=== PATIENT | male | born 1945 | race Two or more races ===

== ENCOUNTER 2016-10-13 16:33 | Emergency (ER) | payer OTHER, MEDICAID ==
[~2016-10-13] VITALS: Ht 167.6 cm; Wt 95.3 kg
[~2016-10-13 16:33] MED LIST: ASPI-247; CEPH750C6 OR; EZET10TA2 PO; FENO43CA3 OR; HYDR-1421 PO; HYDR500T13 PO; METF-489 PO; PRAVASTATIN PO
[2016-10-13 17:43] VITALS: BP 127/85
[2016-10-13 18:11] LABS: Basophils # (auto) 0.1 uL; Basophils % (auto) 0.7 % (0.0-2.0); CONDITION Y; Eosinophils # (auto) 0.2 uL; Eosinophils % (auto) 2.4 % (0.0-7.0); Hematocrit 46.6 % (41.0-53.0); Hemoglobin 15.3 g/dL (13.5-17.5); Lymphocytes # (auto) 1.9 uL; Lymphocytes % (auto) 23.7 % (10.0-50.0); Mean Corpuscular Hemoglobin 28.1 pg (28.0-32.0); Mean Corpuscular Hgb Conc. 32.9 g/dL (32.0-36.0); Mean Corpuscular Volume 85.6 fL (80.0-100.0); Mean Platelet Volume 9.3 fL (7.4-10.4); Monocytes % (auto) 12.1 % (0.0-12.0); Neutrophils # (auto) 4.9 uL; Neutrophils % (auto) 61.1 % (37.0-80.0); Platelet Count (auto) 232 10^3/uL (140-450); Red Cell Distribution Width 13.6 % (11.6-16.0); White Blood Cell 8.1 10^3/uL (4.4-10.8)
[2016-10-13 18:15] LABS: BUN/Creatinine Ratio 29.8; Potassium 3.7 mmol/L (3.5-5.1)
[2016-10-13 18:16] LABS: Albumin 3.7 g/dL (3.4-5.0); Bilirubin, Total 0.3 mg/dL (0.2-1.0); Calcium 8.9 mg/dL (8.5-10.1); Total Protein 7.2 g/dL (6.4-8.2)
== END 2016-10-13 18:34 | disposition home or self-care (01) ==
LOC: ER 16:51
DX: R51 Headache (principal); E11.9 Type 2 diabetes mellitus without complications; G89.29 Other chronic pain; M54.9 Dorsalgia, unspecified; I10 Essential (primary) hypertension; E78.5 Hyperlipidemia, unspecified; Z86.73 Personal history of transient ischemic attack (TIA), and cerebral infarction without residual deficits; R42 Dizziness and giddiness
CPT/HCPCS: 36415; 70450; 80053; 85025; 93005

== ENCOUNTER 2024-03-07 12:57 | Inpatient (IN) | payer OTHER, MEDICAID ==
[~2024-03-07] VITALS: Ht 172.7 cm; Wt 87.6 kg
[~2024-03-07 12:57] MED LIST changes: -EZET10TA2 PO; +EZET10TA22 PO; +FENO1CAP3 OR; -FENO43CA3 OR
[2024-03-07 15:23] LABS: Basophils # (auto) 0.1 10 ^3/uL (0-0.2); Basophils % (auto) 0.8 % (0.0-2.0); Eosinophils # (auto) 0.2 10 ^3/uL (0-0.8); Eosinophils % (auto) 2.7 % (0.0-7.0); Hemoglobin 15.4 g/dL (13.5-17.5); Lymphocytes # (auto) 1.7 10 ^3/uL (0.4-5.4); Lymphocytes % (auto) 19.7 % (10.0-50.0); Mean Corpuscular Hemoglobin 28.7 pg (28.0-32.0); Mean Corpuscular Hgb Conc. 33.4 g/dL (32.0-36.0); Mean Corpuscular Volume 85.9 fL (80.0-100.0); Monocytes % (auto) 11.4 % (0.0-12.0); Neutrophils # (auto) 5.5 10 ^3/uL (1.6-8.6); Neutrophils % (auto) 65.4 % (37.0-80.0); Nucleated Red Blood Cells % 0.2 %; Platelet Count (auto) 235 10^3/uL (140-450); Red Blood Cells 5.36 10^6/uL (4.5-5.90); Red Cell Distribution Width 12.9 % (11.8-14.3); White Blood Cell 8.5 10^3/uL (4.4-10.8)
[2024-03-07] MEDS: SODIUM CHLORIDE 0.9% 1,000 ML IVB ONE (15:39)
[2024-03-07 15:43] LABS: Alanine Aminotransferase 28 U/L (7-40); Albumin 4.2 g/dL (3.2-4.8); Alkaline Phosphatase 108 U/L (46-116); Anion Gap 8 (5-15); Aspartate Aminotransferase 21 U/L (13-40); BUN/Creatinine Ratio 24.7 (10.0-20.0); Bilirubin, Total 0.5 mg/dL (0.2-1.0); Blood Alcohol 5.5 mg/dL (<10); Blood Urea Nitrogen 19 mg/dL (9-23); Calcium 9.9 mg/dL (8.7-10.4); Carbon Dioxide 25 mmol/L (20-31); Glucose 90 mg/dL (74-106); Potassium 4.2 mmol/L (3.5-5.1); Sodium 141 mmol/L (136-145); Total Protein 6.7 g/dL (5.7-8.2)
[2024-03-07 15:44] LABS: Chloride 108 mmol/L (98-107)
--- NOTE | 2024-03-07 15:46 | DVH ---
XY CHEST PORTABLE, HISTORY: cp COMPARISON: None None TECHNICAL DATA: 1 view of the chest was obtained. FINDINGS: Lines and tubes: None Cardiomediastinal silhouette: normal Pulmonary vasculature: normal Lung expansion: normal Lung airspace: Left basilar airspace opacity. Lung interstitium: normal Pleura: normal Pneumothorax: no Bones: Unremarkable Other: no IMPRESSION: Left basilar airspace opacity could be atelectasis.
--- NOTE | 2024-03-07 15:49 | DVH ---
EXAM: CT HEAD WITHOUT CONTRAST HISTORY: ams COMPARISON: None TECHNIQUE: Axial images of the head were obtained and reformatted in coronal and sagittal planes. All CT scans at this medical facility are performed using dose modulation techniques as appropriate t o a performed exam including the following: Automated exposure control was utilized; adjustment of th e MA and/or KV according to patient size; and use of iterative reconstruction technique. CT Dose: CTDI volume is 53 mGy. Dose-length product is 853 mGy*cm FINDINGS: There is no evidence of acute intracranial hemorrhage, mass, mass effect midline shift. There is no h ydrocephalus or extra-axial fluid collection. There is a nonspecific punctate dystrophic calcificatio n in the superior left frontal lobe. Louise-white matter differentiation is maintained. The visualized paranasal sinuses and mastoid air cells are clear. The calvarium is intact. IMPRESSION: 1. No acute intracranial process. HS:Y
[2024-03-07] MEDS: SODIUM CHLORIDE 0.9% 1,000 ML IV ONE (16:18)
--- NOTE | 2024-03-07 16:57 | ED.PDOC ---
History of Present Illness HPI Comments 78-year-old male, with a history of CAD, DM, HLD, HTN, TIA, and prostate cancer, presents with son with complaint of headache, dizziness, and blurry vision for 1 week, today. Patient is a [place] speaker that required english tutor. Per son, patient is reported to have had symptoms unprovoked and intermittently for the past week with associated difficulty ambulating and maintaining his balance. Patient symptoms are commented to worsen also with prolong ambulation. He has no additional relevant a pertinent history reported at time of assessment, such as recent injuries, sick contact, travel, changes to medications, or substance use/exposure. Patient has no reported speech changes, facial droop, lightheadedness, fever, chills, or other associated symptoms or modifiers at this time. Chief Complaint: Dizziness Time Seen by MD: 14:50 Primary Care Provider: unknown Reviewed Notes: Nurses Notes, Medications, Allergies Allergies: Coded Allergies: NO KNOWN ALLERGIES (Unverified , 09/21/09) Home Meds Reported Medications Hydrocodone-Acetaminophen (Acetaminophen/Hydrocodone) 1 Tab Tab, 1 TAB PO, TAB 04/06/13 Fenofibrate (FENOFIBRATE) 43 Mg Cap, 20 MG OR DAILY, CAP 04/06/13 Ezetimibe (Zetia) 10 Mg Tab, 40 MG PO DAILY, TAB 04/06/13 Cephalexin (CEPHALEXIN) 750 Mg Cap, 500 MG OR, CAP 04/06/13 Metformin Hydrochloride (METFORMIN HCL ER) 500 Mg Tab, 500 MG PO DAILY, TAB 04/06/13 Aspirin (Asa) 325 Mg Tb 10/21/09 [Pravastatin] No Conflict Check, 20 MG PO 10/21/09 Hydrocodone-Acetaminophen (Vicodin) 1 Tab Tab, 1 TAB PO PRN 09/21/09 Information Source: Patient Mode of Arrival: Ambulatory Severity: Moderate Timing: Weeks Duration: Since onset Prehospital treatment: None Past Medical History PAST MEDICAL HISTORY: CAD, Cancer (Prostate), DM, High Lipids, HTN, TIA Surgical History: Denies all surgeries Family History Family History: Unobtainable Social History Smoker: Non-Smoker Alcohol: Denies ETOH Use Drugs: Denies Drug Use Lives In: Home EENTM: reports: blurred vision Neurological: reports: dizziness, headache All Other Systems: Reviewed and Negative (Negative unless otherwise stated above or in HPI) Physical Exam General Appearance: No Apparent Distress, Normal HEENT: Normal ENT Inspection, Pharynx Normal, TMs Normal Neck: Full Range of Motion, Non-Tender, Normal, Normal Inspection Respiratory: Chest Non-Tender, Lungs Clear, No Accessory Muscle Use, No Respiratory Distress, Normal Breath Sounds Cardiovascular: No Edema, No JVD, No Murmur, No Gallop, Normal Peripheral Pulses, Regular Rate/Rhythm Breast Exam: Deferred Gastrointestinal: No Organomegaly, Non Tender, No Pulsatile Mass, Normal Bowel Sounds, Soft Genitalia: Deferred Pelvic: Deferred Rectal: Deferred Extremities: No calf tenderness, Normal capillary refill, Normal inspection, Normal range of motion, Non-tender, No pedal edema Musculoskeletal : Apperance: Normal Neurologic: Alert, editorial clerk II-XII nml as Tested, No Motor Deficits, Normal Affect, Normal Mood, No Sensory Deficits Cerebellar Function: Normal Reflexes: Normal Skin: Dry, Normal Color, Warm Lymphatic: No Adenopathy Was a procedure done? Was a procedure done?: No Differential Dx Considerations may include: Vertigo, dehydration, electrolyte imbalance, migraines, tension headache, viral syndrome X-Ray, Labs, Meds, VS Vital Signs Date Time Temp Pulse Resp B/P (MAP) Pulse Ox O2 Delivery O2 Flow Rate FiO2 03/07/24 15:40 69 16 137/75 (95) 95 03/07/24 13:23 96.5 86 16 137/65 (89) 98 Lab Test 03/07/24 16:35 03/07/24 15:00 03/07/24 13:14 Range/Units Troponin I High Sensitivity 9 10 </=54 ng/L White Blood Count 8.5 4.4-10.8 10^3/uL Red Blood Count 5.36 4.5-5.90 10^6/uL Hemoglobin 15.4 13.5-17.5 g/dL Hematocrit 46.0 41.0-53.0 % Mean Corpuscular Volume 85.9 80.0-100.0 fL Mean Corpuscular Hemoglobin 28.7 28.0-32.0 pg Mean Corpuscular Hemoglobin Concent 33.4 32.0-36.0 g/dL Red Cell Distribution Width 12.9 11.8-14.3 % Platelet Count 235 140-450 10^3/uL Mean Platelet Volume 8.7 6.9-10.8 fL Neutrophils (%) (Auto) 65.4 37.0-80.0 % Lymphocytes (%) (Auto) 19.7 10.0-50.0 % Monocytes (%) (Auto) 11.4 0.0-12.0 % Eosinophils (%) (Auto) 2.7 0.0-7.0 % Basophils (%) (Auto) 0.8 0.0-2.0 % Neutrophils # (Auto) 5.5 1.6-8.6 10 ^3/uL Lymphocytes # (Auto) 1.7 0.4-5.4 10 ^3/uL Monocytes # (Auto) 1.0 0-1.3 10 ^3/uL Eosinophils # (Auto) 0.2 0-0.8 10 ^3/uL Basophils # (Auto) 0.1 0-0.2 10 ^3/uL Nucleated Red Blood Cells 0.2 % Sodium Level 141 136-145 mmol/L Potassium Level 4.2 3.5-5.1 mmol/L Chloride Level 108 H 98-107 mmol/L Carbon Dioxide Level 25 20-31 mmol/L Anion Gap 8 5-15 Blood Urea Nitrogen 19 9-23 mg/dL Creatinine 0.77 0.700-1.30 mg/dL Glomerular Filtration Rate Calc 92 >90 mL/min BUN/Creatinine Ratio 24.7 H 10.0-20.0 Serum Glucose 90 74-106 mg/dL Calcium Level 9.9 8.7-10.4 mg/dL Total Bilirubin 0.5 0.2-1.0 mg/dL Aspartate Amino Transferase (AST) 21 13-40 U/L Alanine Aminotransferase (ALT) 28 7-40 U/L Alkaline Phosphatase 108 46-116 U/L Total Protein 6.7 5.7-8.2 g/dL Albumin 4.2 3.2-4.8 g/dL Plasma/Serum Blood Alcohol 5.5 <10 mg/dL POC Glucose 108 H 70-106 mg/dl Current Medications Medications (Trade) Dose Ordered Sig/Antonia Route Start Time Stop Time Status Last Admin Sodium Chloride 1,000 ml @ 1,000 mls/hr Q1H ONCE IVB 03/07/24 14:45 03/07/24 15:44 DC 03/07/24 15:39 [facility] [id number] [place] [id number] Ph: [phone] DIAGNOSTIC IMAGING Diagnostic Imaging Report : [id number] Signed PATIENT: SAHRA BALDWIN ACCT: [id number] UNIT: [id number] : 1945 LOC: ER ROOM / BED: / AGE / SEX: 78 / M ADM STATUS: REG ER SERVICE 41 ORDERING PHYSICIAN: BILLY EASTON MD PROCEDURE(s): HWOCT - HEAD WITHOUT CONTRAST REASON: ams ORDER NUMBER(s): [id number], ACCESSION NUMBER(s): [id number] EXAM: CT HEAD WITHOUT CONTRAST HISTORY: ams COMPARISON: None TECHNIQUE: Axial images of the head were obtained and reformatted in coronal and sagittal planes. All CT scans at this medical facility are performed using dose modulation techniques as appropriate to a performed exam including the following: Automated exposure control was utilized; adjustment of the MA and/or KV according to patient size; and use of iterative reconstruction technique. CT Dose: CTDI volume is 53 mGy. Dose-length product is 853 mGy*cm FINDINGS: There is no evidence of acute intracranial hemorrhage, mass, mass effect midline shift. There is no hydrocephalus or extra-axial fluid collection. There is a nonspecific punctate dystrophic calcification in the superior left frontal lobe. Louise-white matter differentiation is maintained. The visualized paranasal sinuses and mastoid air cells are clear. The calvarium is intact. IMPRESSION: 1. No acute intracranial process. HS:Y ATED BY: JOSE F GRAF MD DICTATED DATE/TIME: 03/07/241547 SIGNED BY: JOSE F GRAF MD SIGNED DATE/TIME: 03/07/241547 CC: [address] [address] Ph: [phone] DIAGNOSTIC IMAGING Diagnostic Imaging Report : [id number] Signed PATIENT: SAHRA BALDWIN ACCT: [id number] UNIT: [id number] : 1945 LOC: ER ROOM / BED: / AGE / SEX: 78 / M ADM STATUS: REG ER SERVICE ORDERING PHYSICIAN: BILLY EASTON MD PROCEDURE(s): CXRP - CHEST PORTABLE REASON: cp ORDER NUMBER(s): [id number], ACCESSION NUMBER(s): [id number] XY CHEST PORTABLE, HISTORY: cp COMPARISON: None None TECHNICAL DATA: 1 view of the chest was obtained. FINDINGS: Lines and tubes: None Cardiomediastinal silhouette: normal Pulmonary vasculature: normal Lung expansion: normal Lung airspace: Left basilar airspace opacity. Lung interstitium: normal Pleura: normal Pneumothorax: no Bones: Unremarkable Other: no IMPRESSION: Left basilar airspace opacity could be atelectasis. ATED BY: WOLF GARCIA MD DICTATED DATE/TIME: 03/07/241543 SIGNED BY: WOLF GARCIA MD SIGNED DATE/TIME: 03/07/241543 CC: Time of 1ST Reevaluation: 15:20 Reevaluation 1ST: Unchanged Patient Education/Counseling: Diagnosis, Treatment Family Education/Counseling: Diagnosis, Treatment Departure 1 Departure Time of Disposition: 17:41 Impression: Primary Impression: Dizziness Disposition: 09 ADMITTED INPATIENT Admit to: Tele Condition: Guarded Critical Care Note Critical Care Time?: Yes (45 min-critical care time only) Stability Stability form required: No Heart Score Heart Score: Heart Score Response (Comments) Value History N/A 0 EKG N/A 0 Age N/A 0 Risk Factors N/A 0 Troponin N/A 0 Total 0 I personally scribed for BILLY EASTON MD ([email or web address]) on 03/07/24 at 16:57. Electronically submitted by Clinton Kolb ([email or web address]). BILLY EASTON MD Mar 07, 2024 16:57
[2024-03-07] MEDS ORDERED: ACETAMINOPHEN 325 MG TAB PO PRN (21:15)
[2024-03-07] MEDS ORDERED: DEXTROSE (50%) 50ML SYRG IV PRN (21:15)
[2024-03-07] MEDS ORDERED: ONDANSETRON HCL 4 MG/2 ML VIAL IV PRN (21:15)
[2024-03-07] MEDS: MECLIZINE HCL 25 MG TAB PO ONE (21:50)
--- NOTE | 2024-03-07 22:14 | DVHHP2 ---
History of Present Illness Reason for Visit: Dizziness History of Present Illness 78-year-old male presents for evaluation of dizziness. Patient reports a one- week history dizziness with associated occipital headache. He reports dizziness being worse with standing. Stasis symptoms are constant. Denies blurred vision or unilateral weakness. Denies cardiac or respiratory complaints. Past Medical History Diabetes mellitus, dyslipidemia, hypertension, prostate cancer and CAD Past Surgical History Denies Family History Noncontributory Smoke: No ALCOHOL: none Drugs: None Lives: with Family Review of Systems Review of Systems Review of systems are currently negative otherwise addressed in HPI. Allergies: Coded Allergies: NO KNOWN ALLERGIES (Unverified , 09/21/09) Medications Current Medications Medications Dose Ordered Sig/Antonia Route Start Time Stop Time Status Last Admin Dose Admin Meclizine HCl 25 mg Q6HPRN PRN PO 03/08/24 03:00 Atorvastatin Calcium 40 mg HS PO 03/07/24 22:00 Losartan Potassium 50 mg DAILY PO 03/08/24 10:00 Levothyroxine Sodium 25 mcg QAM@0600 PO 03/08/24 06:00 Diagnostic Test (Pha) 1 strip ACHS 03/07/24 22:00 Insulin Human Regular ACHS SC 03/07/24 22:00 Dextrose 50 ml UD PRN IV 03/07/24 21:15 Ondansetron HCl 4 mg Q4HP PRN IV 03/07/24 21:15 Enoxaparin Sodium 40 mg DAILY SC 03/08/24 10:00 Acetaminophen 650 mg Q6HP PRN PO 03/07/24 21:15 Exam Vital Signs Vital Signs Date Time Temp Pulse Resp B/P (MAP) Pulse Ox O2 Delivery O2 Flow Rate FiO2 03/07/24 15:40 69 16 137/75 (95) 95 03/07/24 13:23 96.5 Exam Gen: 78-year-old male in mild distress Skin: Warm, dry, normal color and texture, no rash. HEENT: Normocephalic atraumatic, mucous membranes moist and pink. Neck: Cervical and supraclavicular nodes normal without enlargement, trachea is midline, thyroid gland is normal without masses. Pulmonary: Clear to auscultation and percussion bilaterally. Cardiac: Regular rate and rhythm. No murmur Abdomen: Soft, nontender, nondistended, bowel sounds present all 4 quadrants, no guarding, no rigidity, no organomegaly. Extremities: No cyanosis, clubbing, no edema Neuro: Cranial nerves II through XII grossly intact, normal affect and speech, no focal motor deficits. Labs/Xrays ORDERING PHYSICIAN: BILLY EASTON MD PROCEDURE(s): CXRP - CHEST PORTABLE REASON: cp ORDER NUMBER(s): [id number], ACCESSION NUMBER(s): [id number] XY CHEST PORTABLE, HISTORY: cp COMPARISON: None None TECHNICAL DATA: 1 view of the chest was obtained. FINDINGS: Lines and tubes: None Cardiomediastinal silhouette: normal Pulmonary vasculature: normal Lung expansion: normal Lung airspace: Left basilar airspace opacity. Lung interstitium: normal Pleura: normal Pneumothorax: no Bones: Unremarkable Other: no IMPRESSION: Left basilar airspace opacity could be atelectasis. RING PHYSICIAN: BILLY EASTON MD PROCEDURE(s): HWOCT - HEAD WITHOUT CONTRAST REASON: ams ORDER NUMBER(s): [id number], ACCESSION NUMBER(s): [id number] EXAM: CT HEAD WITHOUT CONTRAST HISTORY: ams COMPARISON: None TECHNIQUE: Axial images of the head were obtained and reformatted in coronal and sagittal planes. All CT scans at this medical facility are performed using dose modulation techniques as appropriate to a performed exam including the following: Automated exposure control was utilized; adjustment of the MA and/or KV according to patient size; and use of iterative reconstruction technique. CT Dose: CTDI volume is 53 mGy. Dose-length product is 853 mGy*cm FINDINGS: There is no evidence of acute intracranial hemorrhage, mass, mass effect midline shift. There is no hydrocephalus or extra-axial fluid collection. There is a nonspecific punctate dystrophic calcification in the superior left frontal lobe. Louise-white matter differentiation is maintained. The visualized paranasal sinuses and mastoid air cells are clear. The calvarium is intact. IMPRESSION: 1. No acute intracranial process. HS:Y Labs Test 03/07/24 21:53 03/07/24 18:16 03/07/24 15:00 Range/Units POC Glucose 213 H 70-106 mg/dl Troponin I High Sensitivity 11 </=54 ng/L Thyroid Stimulating Hormone (TSH) 2.66 0.55-4.78 uIU/mL White Blood Count 8.5 4.4-10.8 10^3/uL Red Blood Count 5.36 4.5-5.90 10^6/uL Hemoglobin 15.4 13.5-17.5 g/dL Hematocrit 46.0 41.0-53.0 % Mean Corpuscular Volume 85.9 80.0-100.0 fL Mean Corpuscular Hemoglobin 28.7 28.0-32.0 pg Mean Corpuscular Hemoglobin Concent 33.4 32.0-36.0 g/dL Red Cell Distribution Width 12.9 11.8-14.3 % Platelet Count 235 140-450 10^3/uL Mean Platelet Volume 8.7 6.9-10.8 fL Neutrophils (%) (Auto) 65.4 37.0-80.0 % Lymphocytes (%) (Auto) 19.7 10.0-50.0 % Monocytes (%) (Auto) 11.4 0.0-12.0 % Eosinophils (%) (Auto) 2.7 0.0-7.0 % Basophils (%) (Auto) 0.8 0.0-2.0 % Neutrophils # (Auto) 5.5 1.6-8.6 10 ^3/uL Lymphocytes # (Auto) 1.7 0.4-5.4 10 ^3/uL Monocytes # (Auto) 1.0 0-1.3 10 ^3/uL Eosinophils # (Auto) 0.2 0-0.8 10 ^3/uL Basophils # (Auto) 0.1 0-0.2 10 ^3/uL Nucleated Red Blood Cells 0.2 % Sodium Level 141 136-145 mmol/L Potassium Level 4.2 3.5-5.1 mmol/L Chloride Level 108 H 98-107 mmol/L Carbon Dioxide Level 25 20-31 mmol/L Anion Gap 8 5-15 Blood Urea Nitrogen 19 9-23 mg/dL Creatinine 0.77 0.700-1.30 mg/dL Glomerular Filtration Rate Calc 92 >90 mL/min BUN/Creatinine Ratio 24.7 H 10.0-20.0 Serum Glucose 90 74-106 mg/dL Calcium Level 9.9 8.7-10.4 mg/dL Total Bilirubin 0.5 0.2-1.0 mg/dL Aspartate Amino Transferase (AST) 21 13-40 U/L Alanine Aminotransferase (ALT) 28 7-40 U/L Alkaline Phosphatase 108 46-116 U/L Total Protein 6.7 5.7-8.2 g/dL Albumin 4.2 3.2-4.8 g/dL Plasma/Serum Blood Alcohol 5.5 <10 mg/dL Assessment/Plan Assessment/Plan Assessment Intractable headache Dizziness Hypertension Diabetes mellitus Plan Admit the patient to [facility] to the hospitalist MRI of the brain pending Meclizine trial Resume home medications Continue treatment per orders. Plan discussed with: Patient My Orders Orders - TATO SANDERS Procedure Category Date Status Time Atorvastatin (Lipitor) PHA 03/07/24 In Process 22:00 Losartan Tablet PHA 03/08/24 In Process (Cozaar Tablet) 10:00 Levothyroxine Tablet PHA 03/08/24 In Process (Synthroid Tablet) 06:00 Brain Head Wo Contrast MRI 03/07/24 Logged 21:05 Basic Metabolic Panel LAB 03/08/24 Verified 04:00 Glucose Blood PHA 03/07/24 In Process (Accu-Chek Comfort 22:00 Insulin R (Human) PHA 03/07/24 In Process (Insulin R) 22:00 Dextrose 50% Syringe PHA 03/07/24 In Process 21:15 Admit ADMIT 03/07/24 Transmitted 21:05 Ondansetron Hcl PHA 03/07/24 In Process (Zofran) 21:15 Enoxaparin Sodium PHA 03/08/24 In Process (Lovenox) 10:00 Cardiac DIET 03/08/24 Transmitted Diet-2gna,Lofat,Lochol Breakfast Condition: Stable GRAYSON 03/07/24 In Process 21:05 Acetaminophen Tablet PHA 03/07/24 In Process (Tylenol Tablet) 21:15 Bedrest With Bathroom GRAYSON 03/07/24 In Process Privileg 21:05 Meclizine Tablet PHA 03/08/24 In Process (Antivert Tablet) 03:00 Date of Service: Mar 07, 2024 Billing Provider: TATO SANDERS Common Visit Codes: [id number] INP/OBS CARE (MOD) TATO SANDERS Mar 07, 2024 22:14
[2024-03-07] MEDS: ATORVASTATIN 20 MG TAB PO SCH (22:17)
[2024-03-07] MEDS: InsuLIN REG 1unit/0.01ml Soln (100units/ml) SC SCH (22:17)
[2024-03-07] MEDS: ACCU-CHEK COMFORT CURVE STRIP VI SCH (22:17)
[2024-03-07 22:35] LABS: Urine Bacteria None Seen /hpf (None Seen)
[2024-03-07 22:49] LABS: Urine Blood Negative /uL (Negative); Urine Clarity Clear (Clear); Urine Color Light-Yellow (Yellow); Urine Protein, UAD TRACE (Negative); Urine Specific Gravity 1.025 (1.001-1.035); Urine Urobilinogen Normal (Negative); Urine WBC 1 /hpf (0 - 3); Urine pH 5.5 (5.0-9.0)
[2024-03-08] MEDS ORDERED: MECLIZINE HCL 25 MG TAB PO PRN (03:00)
[2024-03-08 04:40] LABS: Anion Gap 8 (5-15); Carbon Dioxide 26 mmol/L (20-31); Sodium 142 mmol/L (136-145)
[2024-03-08 04:42] LABS: Calcium 9.3 mg/dL (8.7-10.4)
[2024-03-08 04:46] LABS: BUN/Creatinine Ratio 20.8 (10.0-20.0); Blood Urea Nitrogen 16 mg/dL (9-23); Glucose 93 mg/dL (74-106)
[2024-03-08 04:48] LABS: Chloride 108 mmol/L (98-107)
[2024-03-08] MEDS: LEVOTHYROXINE SODIUM 25 MCG TAB PO SCH (05:38)
[2024-03-08 08:09] VITALS: BP 163/80; PULSE 68; RESP 18; TEMP 97.4; O2SAT 96
[2024-03-08] MEDS: LOSARTAN POTASSIUM 50 MG TAB PO SCH (08:10)
--- NOTE | 2024-03-08 08:13 | DVH ---
EXAMINATION: MRI BRAIN HEAD WO CONTRAST INDICATION: Dizziness, headache COMPARISON: CT HEAD WITHOUT CONTRAST on DOS: 03/07/24 TECHNIQUE: Multiplanar, multisequence magnetic resonance imaging of the brain was performed without the use of i ntravenous contrast. FINDINGS: No evidence of acute infarct. No intracranial hemorrhage. No mass effect. The ventricles and sulci are normal in size for age. Clear basal cisterns. Flow voids in the major intracranial vessels are maintained. No abnormality of the orbits. Mastoid air cells are clear. There is opacification of the ethmoid air cells. Mucosal thickening in the maxillary sinuses. No abnormality of the visualized osseous structures and extracranial soft tissues. IMPRESSION: 1. No acute infarct, intracranial hemorrhage, mass effect, or hydrocephalus.
[2024-03-08] MEDS ORDERED: hydrALAZINE HCL 20 MG/ML VL IV PRN (08:15)
[2024-03-08] MEDS: ENOXAPARIN SOD 40 MG/0.4 ML SYRINGE SC SCH (08:17)
[2024-03-08] MEDS ORDERED: METF-370 PO (09:03)
[2024-03-08] MEDS ORDERED: ATOR40TA52 PO (09:03)
[2024-03-08] MEDS ORDERED: LOSA-535 PO (09:05)
[2024-03-08] MEDS ORDERED: LEVO25TA6 PO (09:09)
[2024-03-08] MEDS: LOSARTAN POTASSIUM 50 MG TAB PO ONE (09:13)
[2024-03-08 09:17] VITALS: BP 146/84; PULSE 81; RESP 20; TEMP 97.4; O2SAT 96
[2024-03-08] MEDS ORDERED: CARB6.5S44 OT (09:42)
[2024-03-08] MEDS ORDERED: MECL-90 PO (09:42)
[2024-03-08 10:23] VITALS: TEMP 36.3
--- NOTE | 2024-03-08 13:12 | DVHDS2 ---
Discharge Summary Date of Admission Mar 07, 2024 at 21:21 Date of Discharge: Mar 08, 2024 Labs/Diagnostic Data: Laboratory Results Test 03/08/24 06:32 03/08/24 03:43 03/07/24 22:31 03/07/24 18:16 POC Glucose 96 mg/dl (70-106) Sodium Level 142 mmol/L (136-145) Potassium Level 4.0 mmol/L (3.5-5.1) Chloride Level 108 mmol/L (98-107) Carbon Dioxide Level 26 mmol/L (20-31) Anion Gap 8 (5-15) Blood Urea Nitrogen 16 mg/dL (9-23) Creatinine 0.77 mg/dL (0.700-1.30) Glomerular Filtration Rate Calc 92 mL/min (>90) BUN/Creatinine Ratio 20.8 (10.0-20.0) Serum Glucose 93 mg/dL (74-106) Calcium Level 9.3 mg/dL (8.7-10.4) Urine Color Light-yellow (Yellow) Urine Clarity Clear (Clear) Urine pH 5.5 (5.0-9.0) Urine Specific Mobile 1.025 (1.001-1.035) Urine Protein Trace (Negative) Urine Ketones Negative (Negative) Urine Blood Negative /uL (Negative) Urine Nitrite Negative (Negative) Urine Bilirubin Negative (Negative) Urine Urobilinogen Normal mg/dL (Negative) Urine Leukocyte Esterase Negative /uL (Negative) Urine RBC 1 /hpf (0 - 3) Urine WBC 1 /hpf (0 - 3) Urine Squamous Epithelial Cells None seen /hpf (<5) Urine Bacteria None seen /hpf (None Seen) Urine Glucose Trace mg/dL (Normal) Troponin I High Sensitivity 11 ng/L (</=54) Thyroid Stimulating Hormone (TSH) 2.66 uIU/mL (0.55-4.78) Test 03/07/24 15:00 White Blood Count 8.5 10^3/uL (4.4-10.8) Red Blood Count 5.36 10^6/uL (4.5-5.90) Hemoglobin 15.4 g/dL (13.5-17.5) Hematocrit 46.0 % (41.0-53.0) Mean Corpuscular Volume 85.9 fL (80.0-100.0) Mean Corpuscular Hemoglobin 28.7 pg (28.0-32.0) Mean Corpuscular Hemoglobin Concent 33.4 g/dL (32.0-36.0) Red Cell Distribution Width 12.9 % (11.8-14.3) Platelet Count 235 10^3/uL (140-450) Mean Platelet Volume 8.7 fL (6.9-10.8) Neutrophils (%) (Auto) 65.4 % (37.0-80.0) Lymphocytes (%) (Auto) 19.7 % (10.0-50.0) Monocytes (%) (Auto) 11.4 % (0.0-12.0) Eosinophils (%) (Auto) 2.7 % (0.0-7.0) Basophils (%) (Auto) 0.8 % (0.0-2.0) Neutrophils # (Auto) 5.5 10 ^3/uL (1.6-8.6) Lymphocytes # (Auto) 1.7 10 ^3/uL (0.4-5.4) Monocytes # (Auto) 1.0 10 ^3/uL (0-1.3) Eosinophils # (Auto) 0.2 10 ^3/uL (0-0.8) Basophils # (Auto) 0.1 10 ^3/uL (0-0.2) Nucleated Red Blood Cells 0.2 % Total Bilirubin 0.5 mg/dL (0.2-1.0) Aspartate Amino Transferase (AST) 21 U/L (13-40) Alanine Aminotransferase (ALT) 28 U/L (7-40) Alkaline Phosphatase 108 U/L (46-116) Total Protein 6.7 g/dL (5.7-8.2) Albumin 4.2 g/dL (3.2-4.8) Plasma/Serum Blood Alcohol 5.5 mg/dL (<10) Other Laboratory Tests 03/08/24 03:43 03/07/24 15:00 Brief Hx & Hospital Course: 78-year-old male was admitted for dizziness Symptoms were only with activity Vertigo was suspected CT scan of the head was negative and therefore we did an MRI of the brain today which was also negative for a stroke Examination shows he had impacted cerumen in his both ears He was given Debrox He was also given meclizine The patient is stable for discharge and therefore he will be discharged on Debrox and follow up with his primary care physician for an ear lavage and then also meclizine p.r.n. Resume the home medications Follow up with PCP as soon as possible Final diagnoses: Bilateral ears cerumen impaction Dizziness DM2 HTN Dyslipidemia Prostate CA CAD Condition at Discharge: Stable Final Diagnosis/Problems List Dizziness due to bilateral ears cerumen impaction Discharge Disposition: Home SNF Discharge Will this Physician continue t: No Discharge Instruct/Medications Diet: Consistent carbohydrate, Cardiac 2g Na,low cholest Activity: No Restrictions, As Tolerated Follow Up/Referral: PCP SHAILA Medications: Debrox use as directed Meclizine 25 mg q 8 hours prn Resume home meds Discharge Statement: "Patient was advised to return to the ER or call 911 if any headaches, dizziness, shortness of breath, chest pain, abdominal pain, bleeding, fevers, or worsening of medical condition. Patient was counseled about treatment plan, medications, possible side effects, patientverbalized understanding. All questions were answered to the best of my ability. This discharge took greater then 30 minutes in planning, reviewing documentation, counseling the patient, and discussing with other team members." ASSESSMENT ASSESSMENT Assessment Dizziness due to bilateral ears cerumen impaction Date of Service: Mar 08, 2024 Billing Provider: HÉCTOR DELUCA MD Common Visit Codes: NOT BILLABLE HÉCTOR DELUCA MD Mar 08, 2024 13:12
--- NOTE | 2024-03-09 10:22 | ECG ---
[facility] Test Date: 2024-03-07 Test Time: 13:33:03 Pat Name: SAHRA GAINES Department: ER Room: [address] [place] [address] A Gender: M Level Vial Setter: MADHAVI : 1945 Requested By: BILLY EASTON Order Number: [id number] Reading MD: Measurements Intervals [place] Rate: 72 P: 41 ND: 181 QRS: 8 QRSD: 124 T: 31 QT: 432 QTc: 473 Interpretive Statements Sinus rhythm Right bundle branch block Baseline wander in lead(s) V1 Please click the below link to view image of tracing.
== END 2024-03-08 11:40 | disposition home or self-care (01) | DRG 156 ==
LOC: ER 12:57 → OVERFLOW 21:15
PROVIDERS: ADMIT Nurse Practitioner; ATTEND Internal Medicine Geriatric Medicine
DX: H61.23 Impacted cerumen, bilateral (principal); R51.9 Headache, unspecified; I10 Essential (primary) hypertension; I25.10 Atherosclerotic heart disease of native coronary artery without angina pectoris; E11.9 Type 2 diabetes mellitus without complications; C61 Malignant neoplasm of prostate; E78.5 Hyperlipidemia, unspecified; Z86.73 Personal history of transient ischemic attack (TIA), and cerebral infarction without residual deficits; Z85.46 Personal history of malignant neoplasm of prostate; Z79.82 Long term (current) use of aspirin; Z79.899 Other long term (current) drug therapy
CPT/HCPCS: 36415; 70450; 70551; 71045; 80048; 80053; 80320; 81001; 82962; 84443; 84484; 85025; 99291; G0378; J1815